=== PATIENT | female | born 2000 | race Asian ===

== ENCOUNTER 2020-01-24 10:53 | Emergency (ER) | payer SELFPAY ==
[~2020-01-24] VITALS: Ht 170.2 cm; Wt 93.3 kg
--- NOTE | 2020-01-24 11:29 | NUR ---
INTERMITTANT RUQ ABD PAIN X FEW MONTHS. NAUSEA SECONDARY TO PAIN AT TIMES, SHE FEELS. NO CHANGE IN PAIN WITH EATING NO HX OF ABD SURGERIES BREAST FEEDING A 7 MONTH OLD
--- NOTE | 2020-01-24 11:33 | NUR ---
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
[2020-01-24] MEDS ORDERED: PNV1TAB.5 PO (11:36)
--- NOTE | 2020-01-24 11:49 | NUR ---
URINE SAMPLE TUBED TO LAB FOR ANALYSIS
[2020-01-24 11:50] LABS: BASOPHILS # (AUTO) 0.03 x10^3/uL (0-0.1); BASOPHILS % (AUTO) 1 % (0-1); EOSINOPHILS # (AUTO) 0.22 x10^3/uL (0-0.4); EOSINOPHILS % (AUTO) 4 % (1-7); LYMPHOCYTES # (AUTO) 1.21 x10^3/uL (1-3.4); LYMPHOCYTES % (AUTO) 24 % (22-44); MD NO; MEAN CORPUSCULAR HEMOGLOBIN 22.3 pg (27.0-34.8); MEAN CORPUSCULAR HGB CONC 30.7 g/dL (32.4-35.8); MEAN CORPUSCULAR VOLUME 72.6 fL (80-100); MEAN PLATELET VOLUME 9.6 fL (7.4-10.4); MONOCYTES # (AUTO) 0.37 x10^3/uL (0.2-0.8); MONOCYTES % (AUTO) 7 % (2-9); NEUTROPHILS # (AUTO) 3.23 x10^3/uL (1.8-6.8); NEUTROPHILS % (AUTO) 64 % (42-75); PLATELET COUNT 285 x10^3/uL (130-400); RED CELL DISTRIBUTION WIDTH 17.6 % (9.6-15.2)
--- NOTE | 2020-01-24 11:50 | NUR ---
ultrasound at bedside
[2020-01-24 11:58] LABS: ALANINE AMINOTRANSFERASE 17 U/L (12-78); ALBUMIN 3.6 g/dL (3.4-5.0); ANION GAP 7 mmol/L (5-15); CALCIUM 8.8 mg/dL (8.5-10.1); CHLORIDE 110 mmol/L (98-107); CREATININE 0.68 mg/dL (0.55-1.02)
[2020-01-24 12:00] LABS: BILIRUBIN, DIRECT < 0.1 mg/dL (0.1-0.2)
[2020-01-24 12:03] LABS: ALKALINE PHOSPHATASE 86 U/L (45-117); BILIRUBIN,INDIRECT 0.1 mg/dL (0.0-2.0); BILIRUBIN,TOTAL 0.2 mg/dL (0.2-1.0); TOTAL PROTEIN 8.2 g/dL (6.4-8.2)
[2020-01-24 12:08] LABS: MICROSCOPIC INDICATED
[2020-01-24 13:16] VITALS: BP 137/70
== END 2020-01-24 13:17 | disposition home or self-care (01) ==
LOC: ED 13:01
DX: R10.84 Generalized abdominal pain (principal); R11.2 Nausea with vomiting, unspecified
CPT/HCPCS: 36415; 76705; 80053; 81001; 82247; 82248; 83690; 84702; 85025; 87086; 93005; 99285